=== PATIENT | female | born 1955 | race Caucasian/White ===

== ENCOUNTER → 2022-07-27 | Day surgery (SDC) | payer MEDICARE ==
[~2022-07-27] VITALS: Ht 162.6 cm; Wt 77.1 kg
[2022-07-27] VITALS (13 sets, daily range): BP systolic 118–160; BP diastolic 64–75
[~2022-07-27] MED LIST: FENTANYL CITRATE/PF 50MCG/ML 2ML VIAL IV ONE; FENTANYL CITRATE/PF 50MCG/ML 2ML VIAL ONE; HYDROCODONE/ACETAMINOPHEN 5/325MG TABLET PO PRN; LIDOCAINE HCL 1% 10 MG/ML 10ML VIAL ONE; SODIUM BICARBONATE 4% (2.4MEQ) 5ML VIAL IV ONE
== END | disposition home or self-care (01) ==
LOC: RAD 09:22
PROVIDERS: ATTEND Internal Medicine
DX: R91.1 Solitary pulmonary nodule (principal); R91.8 Other nonspecific abnormal finding of lung field; I51.7 Cardiomegaly; Z79.899 Other long term (current) drug therapy; Z98.890 Other specified postprocedural states
CPT/HCPCS: 32408; 71045; 88305; J3010; J3490; Z7610; 99152; 99153; G0500